=== PATIENT | female | born 1980 | race African-American/Black ===

== ENCOUNTER 2020-09-06 19:14 | Emergency (ER) | payer OTHER | END 2020-09-06 22:38 | disposition home or self-care (01) | LOC: ERS 19:14 | DX: R07.89 Other chest pain (principal); R06.02 Shortness of breath; R42 Dizziness and giddiness; R03.0 Elevated blood-pressure reading, without diagnosis of hypertension; R00.2 Palpitations; F17.210 Nicotine dependence, cigarettes, uncomplicated | CPT/HCPCS: 36415; 71045; 80053; 84484; 84703; 85025; 93005 ==

== ENCOUNTER 2020-10-09 18:00 | Outpatient (CLI) | payer OTHER | END 2020-10-09 18:01 | disposition home or self-care (01) | LOC: SLEEPLAB 18:00 | PROVIDERS: ATTEND Family Medicine | DX: G47.33 Obstructive sleep apnea (adult) (pediatric) (principal); R53.83 Other fatigue; E66.9 Obesity, unspecified; R06.83 Snoring; Z68.43 Body mass index [BMI] 50.0-59.9, adult | CPT/HCPCS: 95806 ==

== ENCOUNTER 2021-11-13 18:53 | Emergency (ER) | payer OTHER ==
[2021-11-13] MEDS ORDERED: Ondansetron ODT 4 MG TAB ONE (20:09)
[2021-11-13] MEDS ORDERED: diphenhydrAMINE 50 MG/ML VIAL ONE (20:59)
[2021-11-13] MEDS ORDERED: Dicyclomine 20 MG/2 ML VIAL ONE (21:00)
[2021-11-13 21:41] LABS: Pregnancy Test - Urine (BHCG) Negative (Negative); Pregu Control Background? CLEAR/WHITE (CLR/WHITE); Pregu Control Bar Appear? YES (CONTROL BAR); Specific Gravity 1.026 (1.002-1.036)
[2021-11-13 21:42] LABS: Bacteria/HPF 2+ HPF (None Seen); Bilirubin Negative (Negative); Blood, Urine 3+ (Negative); Clarity Turbid (Clear); Glucose, Urine (Dipstick) Normal (Negative); Ketone, Urine Negative (Negative); Leukocyte Negative Leu/uL (Negative); Nitrite Negative (Negative); Protein, Urine (Dipstick) 10 mg/dL (Neg-Trace); RBC/HPF 0-3 HPF (0-3); Specific Gravity, Urine 1.026 (1.002-1.036); Urobilinogen Normal mg/dL (Less than 2); WBC/HPF 0-3 HPF (0-3)
== END 2021-11-13 22:03 | disposition home or self-care (01) ==
LOC: ERS 18:53
DX: R11.2 Nausea with vomiting, unspecified (principal); F17.210 Nicotine dependence, cigarettes, uncomplicated
CPT/HCPCS: 81003; 81015; 81025; 96372; 99283; J0500; J1200; Q0162

== ENCOUNTER 2022-04-25 13:16 | Emergency (ER) | payer OTHER ==
[2022-04-25] MEDS ORDERED: Ketorolac Tromethamine 30 MG/ML VIAL ONE (14:36)
== END 2022-04-25 15:04 | disposition home or self-care (01) ==
LOC: ERS 13:16
DX: H00.014 Hordeolum externum left upper eyelid (principal); F17.210 Nicotine dependence, cigarettes, uncomplicated
CPT/HCPCS: 96372; 99282; J1885

== ENCOUNTER 2022-06-10 14:21 | Emergency (ER) | payer OTHER ==
[2022-06-10] MEDS ORDERED: Acetaminophen 500 MG TAB ONE (15:01)
[2022-06-10] MEDS ORDERED: Acetaminophen 325 MG/10.15 ML UDCUP ONE (15:15)
[2022-06-10] MEDS ORDERED: Bicillin LA 1.2 MILLION UNITS/2 ML SYRINGE ONE (16:34)
[2022-06-10] MEDS ORDERED: Dexamethasone 10 MG/ML VIAL ONE (16:34)
== END 2022-06-10 17:16 | disposition home or self-care (01) ==
LOC: ERS 14:21
DX: J02.9 Acute pharyngitis, unspecified (principal); Z20.822 Contact with and (suspected) exposure to COVID-19
CPT/HCPCS: 87081; 87430; 87804; 96372; 99283; J0561; J1100; U0003; U0005

== ENCOUNTER 2022-08-05 22:36 | Emergency (ER) | payer OTHER ==
[2022-08-05] MEDS ORDERED: Lidocaine 1% PF 5 ML VIAL ONE ×2 (23:22→23:54)
[2022-08-05 23:42] LABS: Bacteria/HPF 3+ HPF (None Seen); Bilirubin Negative (Negative); Blood, Urine 1+ (Negative); Clarity Turbid (Clear); Glucose, Urine (Dipstick) Normal (Negative); Ketone, Urine Negative (Negative); Leukocyte 500 Leu/uL (Negative); Nitrite Negative (Negative); Protein, Urine (Dipstick) Negative (Neg-Trace); Specific Gravity, Urine 1.023 (1.002-1.036); Urobilinogen Normal mg/dL (Less than 2); WBC/HPF Greater than 50 HPF (0-3); pH, Urine 5.5 (5.0-9.0)
[2022-08-05 23:44] LABS: Pregnancy Test - Urine (BHCG) Negative (Negative); Pregu Control Background? CLEAR/WHITE (CLR/WHITE); Pregu Control Bar Appear? YES (CONTROL BAR); Specific Gravity 1.023 (1.002-1.036)
[2022-08-06] MEDS ORDERED: Ketorolac Tromethamine 30 MG/ML VIAL ONE (00:35)
== END 2022-08-06 00:46 | disposition home or self-care (01) ==
LOC: ERS 22:36
DX: N76.4 Abscess of vulva (principal); F17.210 Nicotine dependence, cigarettes, uncomplicated
CPT/HCPCS: 56405; 81003; 81015; 81025; 87086; 96372; J1885

== ENCOUNTER 2022-09-23 17:36 | Observation (INO) | payer OTHER ==
[2022-09-23 19:01] LABS: #Basophils 0.1 thou/uL (0.0-0.2); #Eosinphils 0.4 thou/uL (0.0-0.7); #Lymphocytes 3.5 thou/uL (1.20-3.40); #Monocytes 0.8 thou/uL (0.11-0.59); #Neutrophils 12.3 thou/uL (1.40-6.50); %Basophils 0.5 % (0.0-1.0); %Eosinophils 2.1 % (0.0-10.0); %Lymphocytes 20.8 % (21.0-51.0); %Monocytes 4.5 % (0.0-10.0); %Neutrophils 72.2 % (42.0-75.0); Hemoglobin 13.7 g/dL (12.0-16.0); Mean Corpuscular HGB CONC 32.2 g/dL (32.0-36.0); Mean Corpuscular Hemoglobin 27.2 pg (27.0-31.0); Mean Corpuscular Volume 84.3 fl (78.0-98.0); Mean Platelet Volume 7.6 fL (7.4-10.4); Platelet Count 308 10x3/uL (130-400); RBC Distribution Width 13.6 % (11.5-14.5); Red Blood Cell (RBC) Count 5.05 mill/uL (4.20-5.40)
[2022-09-23 19:24] LABS: ALT (SGPT) 13 U/L (8-55); AST (SGOT) 10 U/L (5-34); Alkaline Phosphatase 81 U/L (40-110); Anion Gap 11 mmol/L (10-20); BUN (Urea Nitrogen) 8 mg/dL (7.0-18.7); Bilirubin, Total 0.2 mg/dL (0.2-1.2); Calc. Creatinine Clearance 0 mL/min (70-130); Calcium 9.3 mg/dL (7.8-10.44); Carbon Dioxide 24 mmol/L (22-29); Chloride 104 mmol/L (98-107); Estimated GFR 97; Globulin 4.1 g/dL (2.4-3.5); Glucose 92 mg/dL (70-105); Potassium 3.8 mmol/L (3.5-5.1); Protein, Total 8.1 g/dL (6.0-8.3); Sodium 135 mmol/L (136-145)
[2022-09-23] MEDS ORDERED: Ketorolac Tromethamine 30 MG/ML VIAL ONE (20:29)
[2022-09-23 21:09] LABS: Bacteria/HPF 3+ HPF (None Seen); Bilirubin Negative (Negative); Blood, Urine 3+ (Negative); Clarity Turbid (Clear); Glucose, Urine (Dipstick) Normal (Negative); Ketone, Urine Trace mg/dL (Negative); Leukocyte 250 Leu/uL (Negative); Nitrite Negative (Negative); Protein, Urine (Dipstick) 30 mg/dL (Neg-Trace); RBC/HPF Greater than 50 HPF (0-3); Specific Gravity, Urine 1.036 (1.002-1.036); WBC/HPF 21-50 HPF (0-3); pH, Urine 5.5 (5.0-9.0)
[2022-09-23] MEDS ORDERED: cefTRIAXone (ROCEPHIN) 2 GM VIAL ONE (23:03)
[2022-09-23] MEDS ORDERED: Lactated Ringer's 1,000 ML IV SCH (23:45)
[2022-09-23] MEDS ORDERED: Ondansetron PF 4 MG/2 ML Vial IVP PRN ×2 (23:45→23:47)
[2022-09-23] MEDS ORDERED: Ondansetron ODT 4 MG TAB SL PRN (23:45)
[2022-09-23] MEDS ORDERED: Ondansetron ODT 4 MG TAB PO PRN (23:47)
[2022-09-23] MEDS ORDERED: Acetaminophen 325 MG TAB PO PRN (23:47)
[2022-09-23] MEDS ORDERED: Ibuprofen 600 MG TAB PO PRN (23:53)
[2022-09-23] MEDS ORDERED: Nicotine 14 MG PATCH TD SCH (23:59)
[2022-09-24] MEDS ORDERED: Vancomycin 1 GM/200 ML (FROZEN) BAG ONE (00:15)
[2022-09-24] MEDS ORDERED: Benzonatate 100 MG CAP PO PRN (01:08)
[2022-09-24] MEDS ORDERED: Loratadine 10 MG TAB PO PRN (01:08)
[2022-09-24] MEDS ORDERED: Nicotine 14 MG PATCH ONE (03:01)
[2022-09-24 06:22] LABS: Hemoglobin A1c 5.4 % (4.0-6.0)
[2022-09-24 08:17] LABS: #Basophils 0.1 thou/uL (0.0-0.2); #Eosinphils 0.3 thou/uL (0.0-0.7); #Lymphocytes 2.2 thou/uL (1.20-3.40); #Monocytes 0.7 thou/uL (0.11-0.59); #Neutrophils 10.1 thou/uL (1.40-6.50); %Basophils 0.4 % (0.0-1.0); %Eosinophils 2.5 % (0.0-10.0); %Lymphocytes 16.5 % (21.0-51.0); %Monocytes 4.9 % (0.0-10.0); %Neutrophils 75.7 % (42.0-75.0); Mean Corpuscular HGB CONC 31.2 g/dL (32.0-36.0); Mean Corpuscular Hemoglobin 26.6 pg (27.0-31.0); Mean Corpuscular Volume 85.2 fl (78.0-98.0); Mean Platelet Volume 7.2 fL (7.4-10.4); Platelet Count 291 10x3/uL (130-400); RBC Distribution Width 13.3 % (11.5-14.5); Red Blood Cell (RBC) Count 4.89 mill/uL (4.20-5.40); White Blood Cell (WBC) Count 13.4 10x3/uL (4.8-10.8)
[2022-09-24 08:31] LABS: Anion Gap 10 mmol/L (10-20); BUN (Urea Nitrogen) 9 mg/dL (7.0-18.7); Calc. Creatinine Clearance 0 mL/min (70-130); Carbon Dioxide 25 mmol/L (22-29); Chloride 104 mmol/L (98-107); Estimated GFR 105; Glucose 123 mg/dL (70-105); Potassium 3.7 mmol/L (3.5-5.1); Sodium 135 mmol/L (136-145)
[2022-09-24] MEDS ORDERED: Fluticasone Propionate Nasal Spray 16 gm Bottle NASAL SCH (09:00)
[2022-09-24] MEDS ORDERED: Ibuprofen 200 MG TAB ONE (09:21)
[2022-09-24 09:28] VITALS: BMI 53.1
[2022-09-24] MEDS ORDERED: VANCOMYCIN 2 GRAM/500 ML BAG 2 GM in Premix Bag 1 BAG IVPB SCH (10:00)
[2022-09-24] MEDS ORDERED: Sodium Bicarbonate 2.5 MEQ/5 ML VIAL ONE (14:15)
[2022-09-24] MEDS ORDERED: Lidocaine 1% PF 5 ML VIAL ONE (14:15)
[2022-09-24 15:50] VITALS: BP 120/68; TEMP 98
[2022-09-24 16:23] LABS: BF Color Brown; Body Fluid Source Abscess Fluid; Clarity Cloudy/Turbid (Clear)
[2022-09-24] MEDS ORDERED: cefTRIAXone\\ROCEPHIN 1 GM in Sodium Chloride 0.9% 100 ML IVPB SCH (23:00)
[2022-09-25] MEDS ORDERED: cefTRIAXone\\ROCEPHIN 1 GM in Sodium Chloride 0.9% 100 ML IVPB SCH (23:00)
== END 2022-09-24 16:38 | disposition home or self-care (01) ==
LOC: ERS 17:36 → ERHOLD 23:08 → T4-A 09-24 14:37
PROVIDERS: ADMIT Family Medicine; ATTEND Family Medicine
PROC: 0H9T3ZX Drainage of Right Breast, Percutaneous Approach, Diagnostic (ICD-10-PCS; principal; 2022-09-24)
DX: N61.1 Abscess of the breast and nipple (principal); L73.2 Hidradenitis suppurativa; N30.00 Acute cystitis without hematuria; G47.33 Obstructive sleep apnea (adult) (pediatric); I87.2 Venous insufficiency (chronic) (peripheral); M17.0 Bilateral primary osteoarthritis of knee; R73.03 Prediabetes; F17.210 Nicotine dependence, cigarettes, uncomplicated; E66.01 Morbid (severe) obesity due to excess calories; Z68.43 Body mass index [BMI] 50.0-59.9, adult
CPT/HCPCS: 36415; 71045; 76942; 80048; 80053; 81003; 81015; 83036; 83605; 85025; 85060; 87040; 87070; 87086; 87205; 89051; 96374; G0378; J0696; J1885; J3370; J3370-JW